=== PATIENT | female | born 1990 | race Two or more races ===

== ENCOUNTER 2016-08-21 10:08 | Inpatient (IN) | payer OTHER ==
[~2016-08-21] VITALS: Ht 154.9 cm; Wt 70.5 kg
[2016-08-21] VITALS (15 sets, daily range): BP systolic 104–126; BP diastolic 55–81
[~2016-08-21 10:08] MED LIST: AUGMENTIN875 MG PO; NOHOMEMEDS; NORCO 5/3251 TABLET PO; TYLENOL/CODE1 TABLE1 PO
[2016-08-21 11:09] LABS: EOSINOPHIL (%) 0.8 % (0-5); EOSINOPHIL COUNT 0.1 K/uL (0-0.3); HEMATOCRIT 35.3 % (36.0-46.0); IMMATURE GRANULOCYTE COUNT 0.5 K/uL; MCH 28.7 PG (29.0-34.0); MCHC 33.1 G/DL (30.0-36.0); MCV 86.7 FL (83-99); MEAN PLAT.VOLUME 10.8 uM^3 (9.5-12.4); MONOCYTE (%) 6.3 % (3-12); MONOCYTE COUNT 0.7 K/uL (0-0.8); NEUTROPHIL (%) 70.6 % (45-76); PLATELET COUNT 284 K/uL (156-360); RBC DIS.WIDTH-CV 13.8 % (11.8-14.6); RBC DIS.WIDTH-SD 43.4 % (39-53); RED BLOOD COUNT 4.07 M/uL (3.80-5.20); WHITE BLOOD COUNT 11.3 K/uL (4.1-10.2)
[2016-08-22] VITALS (29 sets, daily range): BP systolic 93–137; BP diastolic 50–75
[2016-08-22] MEDS ORDERED: IBUPROFEN800 MG PO (16:33)
[2016-08-23 22:50] VITALS: BP 129/78
[2016-08-24 07:13] VITALS: BP 115/61
== END 2016-08-24 13:20 | disposition home or self-care (01) | DRG 775 ==
LOC: LDRP-OP 10:08 → 2WEST 10:09 → LDRP-OP 09-13 16:09
PROVIDERS: Obstetrics & Gynecology
DX: O48.0 Post-term pregnancy (principal); O70.0 First degree perineal laceration during delivery; O41.03X0 Oligohydramnios, third trimester, not applicable or unspecified; O26.03 Excessive weight gain in pregnancy, third trimester; Z3A.41 41 weeks gestation of pregnancy; Z37.0 Single live birth; Z87.891 Personal history of nicotine dependence
CPT/HCPCS: 85025; C1755; G0378; J2795; J3010; J7120